=== PATIENT | male | born 1935 | race Caucasian/White ===

== ENCOUNTER 2016-12-30 13:29 | Inpatient (IN) | payer MEDICARE, BC ==
[~2016-12-30] VITALS: Ht 193 cm; Wt 108.4 kg
--- NOTE | ~2016-12-30 | OP ---
PATIENT NAME: JACEY NAVARRO MEDICAL RECORD: [id number] :36 LOCATION:[id number] ADMISSION DATE:12/30/16 SURGEON: YE VALENZUELA MD DATE OF OPERATION: 01/02/2017 PREOPERATIVE DIAGNOSES: 1. Acute cholecystitis. 2. Elevated liver function tests. 3. Hypertension. POSTOPERATIVE DIAGNOSES: 1. Acute cholecystitis. 2. Elevated liver function tests. 3. Hypertension. PROCEDURES: 1. Laparoscopic cholecystectomy with intraoperative cholangiogram. 2. Fluoroscopic interpretation. SURGEON: Ye Valenzuela MD. REPORT OF PROCEDURE: The patient's abdomen was prepped and draped in sterile fashion. A cutdown was made on the superior aspect of the umbilicus, 0 Vicryls were placed on the fascia bilaterally and the fascia was incised with 15-blade. I then bluntly entered the peritoneal cavity and placed a 12-mm Marcell port. Under direct visualization, a 5 mm trocar was placed in the epigastrium and 2 more 5-mm trocars were placed in the right subcostal region. The gallbladder was grasped and elevated. There is a lot of inflammatory fatty adhesions present and these were teased down carefully with blunt dissection. The adhesions appeared to be more chronic than acute, but there was some acute inflammation to the gallbladder fundus. As we dissected down, we were able to find the cystic artery and cystic duct. The cystic artery was clipped proximally and distally and ligated in standard fashion. The cystic duct was clipped twice proximally and a small opening was made. A Cook cholangiocath was brought through the abdominal wall and rested in the cystic duct. The cholangiogram was performed and it showed there were no filling defects in the cystic duct or the common bile duct, there was good filling of the intrahepatic ducts and there was good flow out into the duodenum. There was no sign of any stricturing or masses. There was some tortuosity to the common bile duct, but otherwise there did not appear to be any dilatation. At this point, the cholangiocath was removed. The cystic duct was clipped 3 times distally and ligated in standard fashion. The gallbladder was taken off the liver bed using electrocautery and placed in the right upper quadrant. Any bleeding from the liver bed was treated with electrocautery. We irrigated out the right upper quadrant and assured there was no sign of any bleeding or bile leakage. At this point, the ports and insufflation were then removed and then, the gallbladder was taken out through the umbilicus. The umbilical fascia was closed with interrupted 0 Vicryls times 3. The wounds were irrigated out with normal saline and infused with 10 mL of 0.25% Marcaine with epinephrine. The skin incisions were all closed with subcutaneous 5-0 Monocryl and dressed appropriately. COMPLICATIONS: None. CONDITION: Stable. OPERATIVE REPORT [id number] JACEY NAVARRO ANESTHESIA: General endotracheal and local. BLOOD LOSS: 50 mL. TRANSINT:[id number] Voice Confirmation ID: [id number] DOCUMENT ID: [id number] YE VALENZUELA MD CC: ALEXANDER MANCUSO DO [id number] DICTATION DATE: 01/02/17917 EDGING SUPERVISOR: 01/02/17 1059 ADM IN [id number] [place] [address]
[~2016-12-30 13:29] MED LIST: ANUSOL-HC 2.5%30 GM TOPICAL; ANUSOL-HC25 MG RC; BP MED PO; CELEXA20 MG PO; DILAUD1MGAMP IV; DOXYCYCLINE HY100 M2 PO; HYDROCODON-ACE1 EAC7 PO; MOBIC7.5 MG PO; ONDANSETRON4 MG/2 M3 IV; PRAVACHOL20 MG PO; PRILOSEC20 MG PO; RESTORIL15 MG PO; SALINE FLUSH10 ML IV; TOPROL XL25 MG PO; [UNRECOGNIZED DRUG - REMARK]; [UNRECOGNIZED DRUG - REMARK] PO
[2016-12-30 15:12] LABS: BASOPHILS 0.2 % (0-2); EOSINOPHILS 0.2 % (0-7); HEMOGLOBIN 15.7 g/dL (13.5-17.5); IMMATURE GRANULOCYTES 0.2 % (0-5); LYMPHOCYTES 8.7 % (15-50); MCH 30.4 pg (26.0-34.0); MCHC 33.4 g/dL (31.0-37.0); MCV 91.1 fL (80.0-100.0); MEAN PLATELET VOLUME 10.2 fL (7.4-10.4); MONOCYTES 2.3 % (2-11); NEUTROPHILS 88.4 % (40-80); RBC 5.16 10x6/uL (4.20-6.10); RDW 14.8 % (11.5-14.5); WBC 5.2 10x3/uL (4.8-10.8)
[2016-12-30 15:15] LABS: PLATELET COUNT 118 10x3/uL (130-400)
[2016-12-30 15:26] LABS: ALBUMIN 3.5 g/dL (3.4-5.0); ANION GAP 16.8 mmol/L (8-16); BILIRUBIN - TOTAL 3.3 mg/dL (0.2-1.3); CALCIUM 10.1 mg/dL (8.5-10.1); CARBON DIOXIDE 24.4 mmol/L (21.0-32.0); CREATININE - SERUM 1.6 mg/dL (0.6-1.3); POTASSIUM - SERUM 3.2 mmol/L (3.5-5.1); PROTEIN - SERUM 7.8 g/dL (6.4-8.2)
[2016-12-30 15:51] LABS: LIPASE 100 U/L (73-393)
[2016-12-30 15:58] LABS: AMYLASE - SERUM 41 U/L (25-115)
[2016-12-30 16:28] LABS: APPEARANCE CLEAR (CLEAR); BILIRUBIN 2+ (NEGATIVE); COLOR AMBER (YELLOW); GLUCOSE NEGATIVE (NEGATIVE); KETONE NEGATIVE (NEGATIVE); LEUKOCYTE ESTERASE NEGATIVE (NEGATIVE); NITRITE NEGATIVE (NEGATIVE); PROTEIN TRACE mg/dL (NEGATIVE)
[2016-12-30 16:30] LABS: RED CELLS - URINE 0-5 /hpf (0-5); WHITE CELLS - URINE 0-5 /hpf (0-5)
[2016-12-30 16:31] LABS: BACTERIA FEW /hpf (NONE SEEN)
--- NOTE | 2016-12-30 19:56 | NUR ---
REC'D TO ROOM 2223 PER STRETCHER FROM ER DEPT AN 81 Y/O W/M PER SERVICES DR. MANCUSO WITH DR. VALENZUELA ON CONSULT WITH DX. CHOLECYSTITIS. ALLERGY-IODINE. IV SALINE LOCKED TO LEFT HAND. AT BEDSIDE. PT IS NPO.ASSESSMENT PER ADMIT PACKET.
[2016-12-30 20:00] VITALS: BP 113/58
[2016-12-30 21:36] VITALS: BP 113/58; BMI 29.2
[2016-12-30] MEDS ORDERED: FISH OIL 1,0001 CA1 PO (21:44)
--- NOTE | 2016-12-30 22:30 | NUR ---
IV FLUIDS OF D5NS STARTED INFUSING AT 50CC'S/HR.
[2016-12-31] VITALS: BP 112/57
--- NOTE | 2016-12-31 | NUR ---
EYES CLOSED RESPIRATIONS WITH EASE AND UNLABORED. VOIDED IN URINAL.
--- NOTE | 2016-12-31 01:00 | NUR ---
UP WITH HELP TO BSC GAS EXPELLED.
--- NOTE | 2016-12-31 03:08 | NUR ---
REMAINS NPO AT BEDSIDE. LEMON SWABS GIVEN FOR DRY MOUTH.
--- NOTE | 2016-12-31 06:31 | NUR ---
REMAINS NPO RESTING QUIETLY DENIES NEEDS.
--- NOTE | 2016-12-31 07:05 | NUR ---
REPORT RECEIVED FROM INSURANCE AGENCY OWNER NURSE. CALL LIGHT IN REACH.
--- NOTE | 2016-12-31 07:40 | NUR ---
PT SITTING UP IN BED WITH NO VISABLE SIGNS OF PAIN OR DISCOMFORT. BED IN LOW POSITION AND CALL LIGHT WITHIN REACH. WILL CONTINUE TO MONITOR.
[2016-12-31 08:14] VITALS: BP 105/55
[2016-12-31 08:14] LABS: ANION GAP 16.5 mmol/L (8-16); CALCIUM 9.3 mg/dL (8.5-10.1); CARBON DIOXIDE 25.1 mmol/L (21.0-32.0); CREATININE - SERUM 1.7 mg/dL (0.6-1.3); POTASSIUM - SERUM 3.6 mmol/L (3.5-5.1)
[2016-12-31 08:20] LABS: BASOPHILS 0.1 % (0-2); EOSINOPHILS 0.1 % (0-7); HEMATOCRIT 42.3 % (42.0-54.0); HEMOGLOBIN 14.2 g/dL (13.5-17.5); IMMATURE GRANULOCYTES 0.4 % (0-5); LYMPHOCYTES 11.9 % (15-50); MCH 30.3 pg (26.0-34.0); MCHC 33.6 g/dL (31.0-37.0); MCV 90.2 fL (80.0-100.0); MEAN PLATELET VOLUME 10.2 fL (7.4-10.4); MONOCYTES 3.3 % (2-11); NEUTROPHILS 84.2 % (40-80); PLATELET COUNT 114 10x3/uL (130-400); RBC 4.69 10x6/uL (4.20-6.10); RDW 15.4 % (11.5-14.5)
[2016-12-31 08:33] LABS: WBC 10.1 10x3/uL (4.8-10.8)
--- NOTE | 2016-12-31 09:02 | NUR ---
ASSESSMENT COMPLETED. NPO AT THIS TIME. AT BEDSIDE. CALL LIGHT IN REACH. WILL CONTINUE WITH PLAN OF CARE.
--- NOTE | 2016-12-31 09:45 | NUR ---
EXPLAINED TO PATIENT THAT HE CANNOT HAVE ANY PAIN MEDS AT THIS TIME UNTIL HIS PIPIDA SCAN. ALSO EXPLAINED WHAT A PIPIDA SCAN IS. VERBALIZED UNDERSTANDING.
--- NOTE | 2016-12-31 11:59 | NUR ---
IV FLUIDS CHANGED TO NS WITH 20 MEQ KCL @ 100 CC/HR AND ZOSYN IVPB. CALL LIGHT IN REACH.
[2016-12-31 12:04] VITALS: BP 100/61
--- NOTE | 2016-12-31 13:34 | NUR ---
SPOKE WITH DR. MANCUSO'S EMPLOYEES ABOUT PATIENT'S CT RESULTS. SHE WAS ALSO ASKING IF SURGERY HAS BEEN HERE TO SEE PATIENT. EXPLAINED TO HER THAT DR. VALENZUELA HAS ORDERED A PIPIDA SCAN. SHE VEDRBALIZED UNDERSTANDING.
--- NOTE | 2016-12-31 14:50 | NUR ---
TO NUCLEAR MED VIA .
[2016-12-31 14:53] VITALS: Ht 193 cm; Wt 108.4 kg
--- NOTE | 2016-12-31 16:00 | NUR ---
STILL IN NUC MED AT THIS TIME.
--- NOTE | 2016-12-31 17:15 | NUR ---
BACK IN ROOM AT THIS TIME. IV FLUIDS INFUSING. FAMILY AT BEDSIDE. CALL LIGHT IN REACH.
--- NOTE | 2016-12-31 18:12 | NUR ---
CLEAR LIQUID TRAY GIVEN. NO CHANGES IN INITIAL ASSESSMENT. CALL LIGHT IN REACH. WILL CONTINUE WITH PLAN OF CARE.
[2016-12-31 19:30] VITALS: BP 120/66
--- NOTE | 2016-12-31 20:00 | NUR ---
ASSESSMENT PER FLOWSHEET. IV PATENT LEFT HAND OF NS W/20MEQ KCL INFUSING AT 100CC'S/HR SITE CLEAR. SR UP X2 CALL LIGHT WITHIN REACH USES URINAL TO VOID. O2 ON 2L/M PER NC. BEDSIDE UPDRAFT TX GIVEN PER RT TECH.
--- NOTE | 2016-12-31 22:00 | NUR ---
EYES CLOSED RESPIRATIONS WITH EASE AND UNLABORED.
[2016-12-31 23:10] VITALS: BP 136/68
--- NOTE | 2017-01-01 | NUR ---
EYES CLOSED RESP[IRATIONS WITH EASE AND UNLABORED. VOIDS WELL IN URINAL.
--- NOTE | 2017-01-01 02:30 | NUR ---
AWAKE SR UP X2 CALL LIGHT WITHIN REACH. O2 ON 2L/M PER NC. NO DISTRESS.
[2017-01-01 03:15] VITALS: BP 132/66
--- NOTE | 2017-01-01 04:14 | NUR ---
RESTING QUIETLY DENIES NEEDS.
[2017-01-01 04:55] LABS: BASOPHILS 0.3 % (0-2); EOSINOPHILS 2.1 % (0-7); HEMATOCRIT 40.4 % (42.0-54.0); HEMOGLOBIN 13.2 g/dL (13.5-17.5); IMMATURE GRANULOCYTES 0.3 % (0-5); LYMPHOCYTES 12.5 % (15-50); MCH 29.8 pg (26.0-34.0); MCHC 32.7 g/dL (31.0-37.0); MCV 91.2 fL (80.0-100.0); MEAN PLATELET VOLUME 10.4 fL (7.4-10.4); MONOCYTES 6.6 % (2-11); NEUTROPHILS 78.2 % (40-80); PLATELET COUNT 102 10x3/uL (130-400); RBC 4.43 10x6/uL (4.20-6.10); RDW 15.8 % (11.5-14.5); WBC 7.8 10x3/uL (4.8-10.8)
[2017-01-01 05:15] LABS: ALBUMIN 2.9 g/dL (3.4-5.0); ANION GAP 11.7 mmol/L (8-16); BILIRUBIN - TOTAL 1.9 mg/dL (0.2-1.3); CALCIUM 8.4 mg/dL (8.5-10.1); CARBON DIOXIDE 25.9 mmol/L (21.0-32.0); CREATININE - SERUM 1.4 mg/dL (0.6-1.3); POTASSIUM - SERUM 3.6 mmol/L (3.5-5.1); PROTEIN - SERUM 6.1 g/dL (6.4-8.2)
--- NOTE | 2017-01-01 07:45 | NUR ---
AWAKE AND ALERT.ORIENTED X3. NO C/O THIS AM. LUNGS ARE CLEAR BILATERALLY, NO COUGH NOTED. SKIN IS INTACT WITHOUT REDNESS. IV TO LEFT FOREARM IS PATENT WITHOUT REDNESS AT INSERTION SITE. DENIES NEEDS.
--- NOTE | 2017-01-01 08:45 | NUR ---
REQUESTED AND GIVEN 650 MG TYLENOL PO FOR C/O HEADACHE. WILL MONITOR.
[2017-01-01 09:24] VITALS: BP 132/71
--- NOTE | 2017-01-01 10:35 | NUR ---
Patient Name: JACEY NAVARRO Admission Status: ER Accout number: [id number] Admission Date: 12-30-2016 : 1935 Admission Diagnosis:CHOLECYSTITIS, UNSPECIFIED Attending: Jalil Garcia Current LOS: 2 Anticipated DC Date: 01-03-2017 Planned Disposition: Home Primary Insurance: MEDICARE A & B Discharge Planning Comments: CM MET WITH PATIENT AND DAUGHTER (SHAUNNA) REGARDING D/C NEEDS AND PLANS. PATIENT STATED HE LIVES WITH HIS AND WILL RETURN THERE AT DISCHARGE. FAMILY WILL DRIVE HIM HOME PER DAUGHTER. PATIENT HAS 3 STEPS W/RAILS TO ENTER HOME AND NO STAIRS INSIDE. PATIENT IS INDEPENDENT WITH HIS CARE AND HAS A WALKER, AND ELEV. TOILET SEAT AT HOME. PATIENTS PCP IS DR. GARCIA AND PHARMACY IS [facility] [address] PATIENTS DAUGHTER STATES HE MIGHT NEED HOME HEALTH BUT WANTS TO WAIT AND SEE WHAT HAPPENS AT THIS STAY. CM WILL CONTINUE TO FOLLOW PATIENT WITH D/C NEEDS AND PLANS. PCP DR. BARTOLOME [facility] ON [facility] [phone] SHAUNNA (DAUGHTER) [phone] Bureau Director: Audrey Dejan Is the patient Alert and Oriented? Yes 0 * How many steps to enter\exit or inside your home? 3 W/RAILS 0 * PCP DR. GARCIA 0 * [facility] [address] * Preadmission Environment Home with Family 0 * ADLs Independent 0 * Equipment Elevated [place] Seat Walker 0 * List name and contact numbers for known caregivers / representatives who currently or will assist patient after discharge: SHAUNNA (DAUGHTER) [phone] 0 * Community resources currently utilized None 0 * Additional services required to return to the preadmission environment? Yes 0 * Can the patient safely return to the preadmission environment? Yes 0 * Has this patient been hospitalized within the prior 30 days at any hospital? No 0 Grand Total: 0
--- NOTE | 2017-01-01 12:30 | NUR ---
LUNCH SERVED IN ROOM. VERY GLAD TO HAVE FULL LIQUID VS CL. NO C/O AT THIS TIME.
--- NOTE | 2017-01-01 16:00 | NUR ---
IV TO LEFT HAND FELL OUT WITH CATHETER INTACT.
[2017-01-01 16:20] VITALS: BP 142/65
--- NOTE | 2017-01-01 16:45 | NUR ---
22 GAUGE IV SITED TO RIGHT FOREARM X1 ATTEMPT. FLUSHES EASY WITH BRISK BLOOD RETURN PRESENT. SECURED WITH TAPE AND TEGADERM. WELL TOLERATED.
--- NOTE | 2017-01-01 17:52 | NUR ---
ATE ALL OF FULL LIQUID SUPPER. FAMILY IN ROOM. REQUESTED AND GIVEN 650 MG TYLENOL PO FOR C/O HEADACHE. WILL MONITOR. NO CHANGES NOTED.
[2017-01-01 20:00] VITALS: BP 141/78
--- NOTE | 2017-01-01 20:00 | NUR ---
ASSESSMENT PER FLOWSHEET. IV PATENT RT FOREARM OF NS W/20MEQ KCL INFUSIING AT 100CC'S/HR SITE CLEAR. SR UP X2 CALL LIGHT WITHIN REACH.
--- NOTE | 2017-01-01 21:00 | NUR ---
MEDS PER MAR.
[2017-01-02] VITALS (12 sets, daily range): BP systolic 128–159; BP diastolic 70–86
--- NOTE | 2017-01-02 | NUR ---
NPO FOR SURGERY IN AM. INFORMED PATIENT OF TIME OF SURGERY IN AM.
--- NOTE | 2017-01-02 00:19 | NUR ---
C/O HEAD ACHE TYLENOL ES 1000MG PO GIVEN FOR RELIEF OF HEADACHE PAIN.
--- NOTE | 2017-01-02 03:00 | NUR ---
EYES CLOSED RESPIRATIONS WITH EASE AND UNLABORED.
[2017-01-02 04:44] LABS: BASOPHILS 0.4 % (0-2); EOSINOPHILS 7.9 % (0-7); HEMATOCRIT 38.5 % (42.0-54.0); HEMOGLOBIN 12.8 g/dL (13.5-17.5); IMMATURE GRANULOCYTES 0.4 % (0-5); LYMPHOCYTES 21.8 % (15-50); MCH 30.4 pg (26.0-34.0); MCHC 33.2 g/dL (31.0-37.0); MCV 91.4 fL (80.0-100.0); MEAN PLATELET VOLUME 9.8 fL (7.4-10.4); MONOCYTES 6.6 % (2-11); NEUTROPHILS 62.9 % (40-80); PLATELET COUNT 102 10x3/uL (130-400); RBC 4.21 10x6/uL (4.20-6.10); WBC 5.3 10x3/uL (4.8-10.8)
[2017-01-02 04:54] LABS: PROTIME 13.1 SECONDS (11.6-15.0)
[2017-01-02 05:01] LABS: ALBUMIN 2.5 g/dL (3.4-5.0); BILIRUBIN - TOTAL 1.16 mg/dL (0.2-1.3); CALCIUM 8.4 mg/dL (8.5-10.1); CARBON DIOXIDE 24.7 mmol/L (21.0-32.0); CREATININE - SERUM 1.1 mg/dL (0.6-1.3); MAGNESIUM - SERUM 1.6 mg/dL (1.8-2.4); PHOSPHOROUS 1.9 mg/dL (2.5-4.9); POTASSIUM - SERUM 3.7 mmol/L (3.5-5.1); PROTEIN - SERUM 6.3 g/dL (6.4-8.2)
--- NOTE | 2017-01-02 10:15 | NUR ---
RECEIVED FROM PACU VIA BED. A/O X3. NO C/O PAIN OR DISCOMFORT. 5 SMALL INSERTION SITES TO ABDOMEN DRY AND INTACT. FAMILY IN ROOM. DENIES NEEDS.
--- NOTE | 2017-01-02 11:03 | NUR ---
VOIDED PER SELF USED URINAL.
--- NOTE | 2017-01-02 11:38 | NUR ---
TOOK AM MEDS WITHOUT DIFFICULTY. ORDERED FULL LIQUID FOR LUNCH PER PATIENT REQUEST.
--- NOTE | 2017-01-02 13:59 | NUR ---
ATE ALL OF FULL LIQUID LUNCH TRAY WITHOUT PAIN OR NAUSEA. UP TO BR WITH ONE PERSON MIN ASSIST. VOIDED CLEAR YELLOW URINE WITHOUT DIFFICULTY. AMBULATED 20 FEET IN HALLWAY WITH MIN ASSIST. REPOSITIONED IN BED FOR COMFORT. VSS.
--- NOTE | 2017-01-02 14:17 | NUR ---
NUTRITION F/U CHART REVIEWED. PT TOLERATING FULL LIQUID DIET WITH GOOD INTAKE. WILL CONTINUE TO MONITOR DIET ADVANCEMENT, PO INTAKE. RD FOLLOWING
--- NOTE | 2017-01-02 16:30 | NUR ---
REQUETED AND GIVEN ONE HYDROCODONE PO FOR C/O PAIN TO ABDOMEN LEVEL 3. WILL MONITOR.
--- NOTE | 2017-01-02 20:00 | NUR ---
ASSESSMENT PER FLOWSHEET. IV PATENT RT FOREARM OF NS W/20MEQ KCL AT 100CC'S/HR SITE CLEAR. LAP SITES TO ABDOMEN X4 C/D/I. VOIDS IN URINAL.DENIES NEEDS.
--- NOTE | 2017-01-02 21:35 | NUR ---
C/O INCISIONAL PAIN RATES PAIN LEVEL #6. NORCO TAB ONE PO GIVEN FOR PAIN CONTROL.
--- NOTE | 2017-01-02 23:00 | NUR ---
EYES CLOSED RESPIRATIONS WITH EASE AND UNLABORED.
[2017-01-03] VITALS: BP 131/80
--- NOTE | 2017-01-03 00:57 | NUR ---
C/O PAIN RATES PAIN #4 TOO EARLY FOR NORCO TYLENOL ES TAB 2 PO GIVEN FOR PAIN CONTROL.
--- NOTE | 2017-01-03 03:00 | NUR ---
EYES CLOSED RESPIRATIOONS WITH EASE AND UNLABORED.
[2017-01-03 04:00] VITALS: BP 136/71
--- NOTE | 2017-01-03 04:38 | NUR ---
C/O INCISIONAL PAIN NORCO TAB ONE PO GIVEN FOR PAIN CONTROL.
--- NOTE | 2017-01-03 06:30 | NUR ---
NO CHAGES IN ASSESSMENT.
--- NOTE | 2017-01-03 07:30 | NUR ---
REPORT RECEIVED, CARE OF PT ASSUMED. NO COMPLAINTS AT THIS TIME. AT BEDSIDE. BED IN LOWEST POSITION, SIDE RAILS UP X 2, CALL LIGHT WITHIN REACH.
[2017-01-03 08:58] VITALS: BP 133/77
[2017-01-03] MEDS ORDERED: HYDROCODON-ACE1 EAC7 PO (09:56)
[2017-01-03] MEDS ORDERED: LEVAQUIN500 MG PO (10:00)
--- NOTE | 2017-01-03 10:57 | NUR ---
CM REASSESSMENT NOTE: PATIENT IS DISCHARGING HOME TODAY- DRIVING. PATIENT REFUSING HOME HEALTH OR ANY OTHER NEEDS FOR DISCHARGE.
[2017-01-03 11:17] LABS: CEA 2.6 ng/mL (0.0-4.7)
--- NOTE | 2017-01-03 11:29 | NUR ---
DISCHARGE INSTRUCTIONS GIVEN TO PT AND , VERBALIZED UNDERSTANDING.
--- NOTE | 2017-01-03 12:15 | NUR ---
PT DISCHARGED FROM FLOOR VIA WHEELCHAIR, WITH . PERSONAL BELONGINGS WITH PT, D/C TO FAMILY VEHICLE.
== END 2017-01-03 12:16 | disposition home or self-care (01) | DRG 418 ==
LOC: D.ER 13:29 → D.MS 18:00
PROVIDERS: Internal Medicine Gastroenterology; Physician Assistant; Surgery; ADMIT Family Medicine
PROC: BF121ZZ Fluoroscopy of Gallbladder using Low Osmolar Contrast (ICD-10-PCS; 2017-01-02)
PROC: 0FT44ZZ Resection of Gallbladder, Percutaneous Endoscopic Approach (ICD-10-PCS; principal; 2017-01-02 07:30)
DX: K81.0 Acute cholecystitis (principal); R78.81 Bacteremia; I10 Essential (primary) hypertension

== ENCOUNTER 2019-06-20 12:31 | Inpatient (IN) | payer MEDICARE, BC ==
[~2019-06-20] VITALS: Ht 193 cm; Wt 82.7 kg
--- NOTE | 2019-06-20 12:15 | NUR ---
RECEIVED INTO ROOM 1112A VIA BED.ORIENTED.STATES HE IS TIRED AND WANTS TO GO HOME.ORIENTED X3.CL IN EASY REACH,BED IN LOW POSITION.BED ALARM ON.
[~2019-06-20 12:31] MED LIST changes: +ACETAMINOPHEN500 M1 PO; +CARAFATE1 G PO; +COLACE100 MG PO; +COREG 3.1253.125 MG PO; +FISH OIL 1,0001 CA1 PO; +GABAPENTIN100 MG PO; +LEVAQUIN500 MG PO; +LINZESS145 MCG PO; +MEGACE400 MG/10 PO; +MELATONIN5 MG PO; +MIRALAX17 GM PO; +PROTONIX40 MG PO; +REGLAN10 MG PO; +TRAMADOL HCL E100 M1 PO; +VOLTAREN100 GM TOPICAL
[2019-06-20 12:36] VITALS: BP 115/63
--- NOTE | 2019-06-20 19:02 | NUR ---
GREETED PATIENT AND INTRODUCED MYSELF HIS NURSE. PATIENT IS LAYING IN BED RESTING AT THIS TIME. RESPIRATIONS EVEN. NO S/S OF DISTRESS. DENIES ANY NEEDS AT THIS TIME. CALL LIGHT IN REACH.
[2019-06-20 20:30] VITALS: BP 96/59
--- NOTE | 2019-06-21 00:41 | NUR ---
PT. RESTING QUIETLY WITH EYES CLOSED. RESPIRATIONS EVEN. NO S/S OF DISTRESS. CALL LIGHT IN REACH.
--- NOTE | 2019-06-21 04:39 | NUR ---
PT RESTING QUIETLY WITH EYES CLOSED. RESPIRATIONS EVEN. NO S/S OF DISTRESS. CALL LIGHT IN REACH.
[2019-06-21 06:31] LABS: BASOPHILS 1.2 % (0-2); EOSINOPHILS 4.5 % (0-7); HEMATOCRIT 34.5 % (42.0-54.0); HEMOGLOBIN 12.1 g/dL (13.5-17.5); IMMATURE GRANULOCYTES 0.7 % (0-5); LYMPHOCYTES 22.9 % (15-50); MCH 33.8 pg (26.0-34.0); MCHC 35.1 g/dL (31.0-37.0); MCV 96.4 fL (80.0-100.0); MEAN PLATELET VOLUME 9.3 fL (7.4-10.4); MONOCYTES 8.4 % (2-11); NEUTROPHILS 62.3 % (40-80); PLATELET COUNT 223 10x3/uL (130-400); RBC 3.58 10x6/uL (4.20-6.10); RDW 13.9 % (11.5-14.5); WBC 5.7 10x3/uL (4.8-10.8)
[2019-06-21 06:49] LABS: CALC OSMOLALITY 276 mosm/kg (275-300); CALCIUM 9.8 mg/dL (8.5-10.1); CARBON DIOXIDE 24.4 mmol/L (21.0-32.0); CHLORIDE - SERUM 103 mmol/L (98-107); CREATININE - SERUM 0.8 mg/dL (0.6-1.3); GLUCOSE 95 mg/dL (74-106); POTASSIUM - SERUM 3.3 mmol/L (3.5-5.1); SODIUM 137 mmol/L (136-145); UREA NITROGEN 22 mg/dL (7-18); eGFR NON AFRICAN AMERICAN > 90 mL/min (90-120)
--- NOTE | 2019-06-21 07:45 | NUR ---
PT LYING IN BED WITH HOB ELEVATED AT 45 DEGREES. RESP EVEN AND UNLABORED. PT DENIES ANY PAIN OR DISCOMFORT AT THIS TIME. SHIFT ASSESSMENT COMPLETE. NO DISTRESS NOTED. WILL CPOC.
[2019-06-21 08:00] VITALS: BP 95/64
--- NOTE | 2019-06-21 19:15 | NUR ---
PT LYING IN BED. CL IN REACH. DENIES NEEDS OR PAIN AT THIS TIME. BED IN LOW SIDE RAILS X2. PEG TUBE INTACT OSMOLITE RUNNING AT 60ML/HR. A/O X4 CONFUSED AT TIMES. RESP EVEN AND UNLABORED. LUNGS CLEAR. BOWEL ACTIVE X4. WILL CONTINUE TO MONITOR.
[2019-06-21 20:00] VITALS: BP 117/56
--- NOTE | 2019-06-22 00:47 | NUR ---
I have reviewed this patient and I concur with the Shift Assessment completed by the Licensed Practical Nurse today this shift.
--- NOTE | 2019-06-22 04:00 | NUR ---
PT RESTING QUIETLY. CL IN REACH. NO DISTRESS NOTED. WCTM
[2019-06-22 07:56] LABS: BASOPHILS 1.1 % (0-2); EOSINOPHILS 3.5 % (0-7); HEMATOCRIT 33.2 % (42.0-54.0); HEMOGLOBIN 11.6 g/dL (13.5-17.5); IMMATURE GRANULOCYTES 0.9 % (0-5); LYMPHOCYTES 20.8 % (15-50); MCHC 34.9 g/dL (31.0-37.0); MEAN PLATELET VOLUME 9.8 fL (7.4-10.4); MONOCYTES 7.9 % (2-11); NEUTROPHILS 65.8 % (40-80); PLATELET COUNT 230 10x3/uL (130-400); RBC 3.52 10x6/uL (4.20-6.10); RDW 13.8 % (11.5-14.5); WBC 5.4 10x3/uL (4.8-10.8)
[2019-06-22 08:00] VITALS: BP 109/69
[2019-06-22 08:02] LABS: CALC OSMOLALITY 270 mosm/kg (275-300); CALCIUM 9.7 mg/dL (8.5-10.1); CHLORIDE - SERUM 103 mmol/L (98-107); CREATININE - SERUM 0.8 mg/dL (0.6-1.3); GLUCOSE 109 mg/dL (74-106); POTASSIUM - SERUM 3.6 mmol/L (3.5-5.1); SODIUM 134 mmol/L (136-145); UREA NITROGEN 18 mg/dL (7-18); eGFR NON AFRICAN AMERICAN > 90 mL/min (90-120)
[2019-06-22 08:11] LABS: MCV 94.3 fL (80.0-100.0)
--- NOTE | 2019-06-22 09:05 | NUR ---
PT AM MEDS ADMINISTERED. PT DENIES NEEDS. WCTM.
[2019-06-22 12:36] VITALS: Ht 193 cm; Wt 82.7 kg
--- NOTE | 2019-06-22 18:31 | NUR ---
PT RESTING IN BED, DINNER TRAY ORDERED D/T ORDER GETTING DC'D BY MISTAKE. PT NOW EATING. WCTM.
--- NOTE | 2019-06-22 19:20 | NUR ---
CHANGED PT DUE TO INCONTINENCE AND PEG TUBE LEAKING. ENTIRE LINEN CHANGED. CL IN REACH. PT DENIES NEEDS AT THIS TIME AND CONFUSED. LOWER LEGS COLD PEDAL PULSES WEAK 3+. RESP EVEN AND UNLABORED. BED IN LOW SIDE RAILS X2. BOWEL ACTIVE X4. PEG TUBE INTACT. WILL CONTINUE TO MONITOR.
[2019-06-22 22:21] VITALS: BP 94/49
--- NOTE | 2019-06-23 00:25 | NUR ---
I have reviewed this patient and I concur with the Shift Assessment completed by the Licensed Practical Nurse today this shift.
--- NOTE | 2019-06-23 04:23 | NUR ---
CHANGED PT DUE TO INCONTINENCE AND PT USED URINAL AT THIS TIME. CL IN REACH. TUBE FED INTACT. WCTM
--- NOTE | 2019-06-23 07:30 | NUR ---
POSITIONED ON BACK AND RESTING WITH EYES CLOSED. RESP EVEN AND UNLABORED. TUBE FEEDING IN PROGRESS PER PEG TUBE OSMOLITE 1.5 DMITRI AT 60 CC/HR WITH 50 CC FLUSH Q HOUR. NO REQUESTS VOICED. ASSESSMENT COMPLETED AND WILL CONTINUE POC. BED IN LOW POSITION AND CALL LIGHT IN REACH.
[2019-06-23 08:00] VITALS: BP 102/63
--- NOTE | 2019-06-23 10:00 | NUR ---
I have reviewed this patient and I concur with the Shift Assessment completed by the Licensed Practical Nurse today this shift.
--- NOTE | 2019-06-23 11:00 | NUR ---
I have reviewed this patient and I concur with the Shift Assessment completed by the Licensed Practical Nurse today this shift.
--- NOTE | 2019-06-23 19:00 | NUR ---
GREETED PATIENT AND INTRODUCED MYSELF HIS NURSE. PATIENT IS LAYING IN BED WATCHING TV AT THIS TIME. PT. IS AOX3. DENIES ANY NEEDS AT THIS TIME. RESPIRATIONS EVEN. NO S/S OF DISTRESS. BEDSIDE SHIFT REPORT COMPLETED BY OFF GOING NURSE. CALL LIGHT IN REACH.
[2019-06-23 20:42] VITALS: BP 107/59
[2019-06-24 08:00] VITALS: BP 109/64
[2019-06-24 09:17] LABS: BASOPHILS 0.1 % (0-2); EOSINOPHILS 0.7 % (0-7); HEMATOCRIT 32.6 % (42.0-54.0); HEMOGLOBIN 11.3 g/dL (13.5-17.5); IMMATURE GRANULOCYTES 0.3 % (0-5); MCH 33.3 pg (26.0-34.0); MCHC 34.7 g/dL (31.0-37.0); MCV 96.2 fL (80.0-100.0); MEAN PLATELET VOLUME 10.2 fL (7.4-10.4); MONOCYTES 5.8 % (2-11); NEUTROPHILS 86.1 % (40-80); PLATELET COUNT 223 10x3/uL (130-400); RBC 3.39 10x6/uL (4.20-6.10); RDW 14.9 % (11.5-14.5); WBC 6.9 10x3/uL (4.8-10.8)
[2019-06-24 09:24] LABS: CALC OSMOLALITY 269 mosm/kg (275-300); CALCIUM 9.9 mg/dL (8.5-10.1); CARBON DIOXIDE 21.3 mmol/L (21.0-32.0); CHLORIDE - SERUM 102 mmol/L (98-107); CREATININE - SERUM 0.9 mg/dL (0.6-1.3); GLUCOSE 136 mg/dL (74-106); SODIUM 133 mmol/L (136-145); UREA NITROGEN 19 mg/dL (7-18); eGFR NON AFRICAN AMERICAN 85 mL/min (90-120)
--- NOTE | 2019-06-24 15:48 | NUR ---
Nutrition Follow-up: Spoke with RN and discussed decreasing Na level. Recommended decrease in free water and TF for time being. Noted that pt is still on megace and has been eating ~25% of meals. RN also noted that patient with distended abdomen and has not had a BM in 5 days per chart. Diet: Regular Mech Soft + PEG-J feeds of Osmolite 1.5 @ 60mL/hr + H2O @ 50mL/hr PO intake: ~25% average x last 6 meals Last BM: none recorded since rehab admit Meds noted: micro-K, miralax, megace, reglan, linzess Labs noted: Na 133(L)- trending down from 137(06/21/19) and 134(06/22/19) Change TF rate to 45mL/hr and H2O flush to 40mL/hr. This will provide 1783mL of free water (~20mL/kg) and 1620 calories (~75% of estimated needs). Hopefully patient's appetite will continue to improve. Will continue to monitor sodium and PO intake. Hopefully patient will have BM soon. RD following.
--- NOTE | 2019-06-24 19:03 | NUR ---
GREETED PATIENT AND INTRODUCED MYSELF HIS NURSE. PATIENT IS LAYING IN BED JUST FINISHING HIS SUPPER. EXPLAINED TO PATIENT THAT HIS TUBE FEEDINGS HAD BEEN TURNED DOWN TO 45 ML PER HOUR TO HELP INCREASE HIS APPETITIE. PT. STATES " I JUST DONT LIKE TO EAT." EXPLAINED TO PT. THAT IT WAS IMPORTANT FOR HIS HEALTH TO TRY AND EAT. PT. STATED " I WILL TRY." RESPIRATIONS EVEN. NO S/S OF DISTRESS. CALL LIGHT IN REACH. BEDSIDE SHIFT REPORT COMPLETE FROM OFF GOING NURSE.
--- NOTE | 2019-06-24 20:08 | NUR ---
PT. CLEANED OF INCONTINENT BOWEL AND URINE. REPOSITIONED FOR COMFORT. CALL LIGHT IN REACH.
[2019-06-24 22:11] VITALS: BP 95/58
--- NOTE | 2019-06-25 01:10 | NUR ---
PT. NEEDS 1.5 OSMOLITE FOR FEEDING. DIETARY DELIVERED TO UNIT 1.0 OSMOLITE. WENT TO MED FLOOR AND ICU LOOKING FOR 1.5. UNSUCCESSFUL. CREMATOR CONTACTED OF SITUATION. CREMATOR STATED THAT SHE WOULD GO TO KITCHEN AND LOOK FOR 1.5 OSMOLITE.
--- NOTE | 2019-06-25 02:39 | NUR ---
PT. RESTING QUIETLY WITH EYES CLOSED. RESPIRATIONS EVEN. NO S/S OF DISTRESS. CALL LIGHT IN REACH.
[2019-06-25 08:43] VITALS: BP 123/72
--- NOTE | 2019-06-25 13:09 | NUR ---
PATIENT IS ALERT/ORIENT. SITTING UP IN BED TO EAT BREAKFAST. MECHANICAL SOFT DIET. PATIENT IS ALSO GETTING OSMOLIT 1.5 THROUGH PEG TUBE. VOICES NO NEEDS AT THIS TIME. CALL LIGHT WITHIN REACH. WILL CONTINUE WITH PLAN OF CARE.
--- NOTE | 2019-06-25 13:16 | NUR ---
PATIENT IN REHAB ROOM. WORKING WITH PHYSICAL THERAPIST. DENIES ANY PAIN/DISC AT THIS TIME.
--- NOTE | 2019-06-25 15:29 | NUR ---
Nutrition Follow-up: Spoke with nursing staff about patient TF. 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 Patient has been consuming ~25% of meals while in rehab. Will change to Cyclic TF of Osmolite 1.5 @ 100mL/hr + H2O @ 70mL/hr x 12hrs on and 12hrs off. To allow time off the pump for therapy during the day and to hopefully help improve appetite. This new regimen will provide: 1800 calories, 75gms PRO, and 1,754mL free water. This meets ~84% of estimated calorie needs, ~94% of estimated protein needs, and ~82% of estimated fluid needs. Will continue to monitor TF tolerance (as reported by nursing), labs, PO intake, BMs, and WT trend. RD following.
--- NOTE | 2019-06-25 19:27 | NUR ---
PT LYING IN BED. DENIES NEEDS OR PAIN AT THIS TIME. BED IN LOW SIDE RAILS X2. PEG TUBE INTACT. CL IN REACH. RESP EVEN AND UNLABORED. A/O X4 WITH SOME CONFUSION WITH TIME. LUNGS CLEAR. BOWEL ACTIVE X4. WILL CONTINUE TO MONITOR.
[2019-06-25 22:10] VITALS: BP 125/59
--- NOTE | 2019-06-26 02:53 | NUR ---
I have reviewed this patient and I concur with the Shift Assessment completed by the Licensed Practical Nurse today this shift.
[2019-06-26 07:14] LABS: BASOPHILS 0.6 % (0-2); EOSINOPHILS 2.7 % (0-7); HEMATOCRIT 32.7 % (42.0-54.0); HEMOGLOBIN 11.2 g/dL (13.5-17.5); IMMATURE GRANULOCYTES 0.6 % (0-5); LYMPHOCYTES 23.3 % (15-50); MCH 33.3 pg (26.0-34.0); MCHC 34.3 g/dL (31.0-37.0); MCV 97.3 fL (80.0-100.0); MEAN PLATELET VOLUME 9.7 fL (7.4-10.4); MONOCYTES 9.5 % (2-11); NEUTROPHILS 63.3 % (40-80); RBC 3.36 10x6/uL (4.20-6.10); RDW 15.1 % (11.5-14.5)
[2019-06-26 07:19] LABS: PLATELET COUNT 271 10x3/uL (130-400); WBC 4.7 10x3/uL (4.8-10.8)
[2019-06-26 07:25] LABS: CALC OSMOLALITY 272 mosm/kg (275-300); CARBON DIOXIDE 22.7 mmol/L (21.0-32.0); CHLORIDE - SERUM 103 mmol/L (98-107); GLUCOSE 91 mg/dL (74-106); SODIUM 135 mmol/L (136-145); UREA NITROGEN 21 mg/dL (7-18); eGFR NON AFRICAN AMERICAN 76 mL/min (90-120)
--- NOTE | 2019-06-26 08:00 | NUR ---
PATIENT ALERT, HARD OF HEARING AND FORGETFULL. BED ALARM ON. CALL LIGHT WITHIN REACH. VOICES NO NEEDS AT THIS TIME. WILL CONTINE WITH PLAN OF CARE
[2019-06-26 08:25] VITALS: BP 121/57
--- NOTE | 2019-06-26 13:23 | NUR ---
PATIENT ATE 50% OF LUNCH. DRANK 50% OF ENSURE.
--- NOTE | 2019-06-26 14:54 | NUR ---
PATIENT ADMITTED TO REHAB FROM ACUTE FLOOR. HIS PCP IS DR. MANCUSO. DR. MANCUSO NURSE IS PATIENT DAUGHTER. WILL CONTINUE TO FOLLOW WITH PATIENT. PATIENT WAS A CLIENT OF [facility].
--- NOTE | 2019-06-26 18:40 | NUR ---
BEDSIDE REPORT COMPLETE. PT SITTING UP IN BED WATCHING TV. DENIES ANY NEEDS OR PAIN. RR EVEN AND UNLABORED. CONTINUES ON 2L VIA NC. CL IN REACH. FALL PRECAUTIONS IN PLACE. WILL CONTINUE TO MONITOR
--- NOTE | 2019-06-26 18:40 | NUR ---
BEDSIDE REPORT COMPLETE. PT LYING IN BED ON LEFT SIDE EYES CLOSED RESTING. RR EVEN AND UNLABORED. DENIES ANY NEEDS OR PAIN. CL IN REACH. FALL PRECAUTIONS IN PLACE. WILL CONTINUE TO MONITOR
--- NOTE | 2019-06-26 18:58 | NUR ---
RADIOLOGY RETURNED CALL AND ADVISED DR. OVIEDO NEEDS TO CONTACT DR. BOWMAN [phone] HE NEEDS TO SPEAK WITH HIM IN REGARDS TO PT GJ TUBE BEING CLOGGED ON THE JUJENAL SIDE.
[2019-06-26 21:50] VITALS: BP 100/51
--- NOTE | 2019-06-26 23:53 | NUR ---
PT LYING IN BED ON LEFT SIDE EYES CLOSED RESTING. NO SIGNS OF ACUTE DISTRESS NOTED. FEEDING TUBE RUNNING 100ML/HR. CL IN REACH
--- NOTE | 2019-06-27 03:40 | NUR ---
PT LYING IN BED ON RIGHT SIDE EYES CLOSED RESTING. RR EVEN AND UNLABORED. CL IN REACH
--- NOTE | 2019-06-27 05:20 | NUR ---
PT REFUSED BATH PT STATES "ITS TOO COLD"
[2019-06-27 07:00] VITALS: BP 102/60
--- NOTE | 2019-06-27 08:00 | NUR ---
PT RESTING IN BED WITH EYES OPEN CALL LIGHT IN REACH NO PROBLEMS WILL MONITER
--- NOTE | 2019-06-27 15:09 | NUR ---
I have reviewed this patient and I concur with the Shift Assessment completed by the Licensed Practical Nurse today this shift.
--- NOTE | 2019-06-27 18:33 | NUR ---
PT RESTING IN BED WITH EYES OPEN CALL LIGHT IN REACH WILL MONITER
--- NOTE | 2019-06-27 19:20 | NUR ---
GREETED PATIENT AND INTRODUCED MYSELF HIS NURSE. PATIENT IS LAYING IN BED RESTING AT THIS TIME. RESPIRATIONS EVEN. NO S/S OF DISTRESS. DENIES ANY NEEDS AT THIS TIME. PT. IS ORIENTATED TO SELF ONLY AT THIS TIME. CALL LIGHT IN REACH.
[2019-06-27 19:45] VITALS: BP 105/53
--- NOTE | 2019-06-28 00:53 | NUR ---
PT AWAKE AND CONFUSED AT THIS TIME. ORIENTATED TO SELF ONLY. ATTEMPTED TO REORIENTATE PATIENT TO STAFF AND SURROUNDINGS. REPOSITIONED FOR COMFORT. CALL LIGHT IN REACH.
--- NOTE | 2019-06-28 03:00 | NUR ---
PT. AWAKE LAYING IN BED. RESPIRATIONS EVEN. NO S/S OF DISTRESS. DENIES ANY NEEDS AT THIS TIME. CALL LIGHT IN REACH.
--- NOTE | 2019-06-28 08:00 | NUR ---
SHIFT ASSMT COMPLETED.BREAKFAST GIVEN.CL IN REACH.
[2019-06-28 10:08] VITALS: BP 105/56
--- NOTE | 2019-06-28 16:00 | NUR ---
RESTING QUIETLY.CL IN REACH.
--- NOTE | 2019-06-28 19:05 | NUR ---
GREETED PATIENT AND INTRODUCED MYSELF HIS NURSE. PATIENT IS LAYING IN BED RESTING QUIETLY AT THIS TIME. TUBE FEEDING SET UP AND RUNNING AT 100 ML/HR WITH A 70 ML/FLUSH. RESPIRATIONS EVEN. NO S/S OF DISTRESS. CALL LIGHT IN REACH.
[2019-06-28 19:30] VITALS: BP 103/54
--- NOTE | 2019-06-28 23:20 | NUR ---
PT. CLEANED OF INCONTINENT BOWEL AND URINE. COMPLETED BED BATH AND LINEN CHANGE. PT REPOSITIONED FOR COMFORT. CALL LIGHT IN REACH.
--- NOTE | 2019-06-29 00:59 | NUR ---
PT. CLEANED OF INCONTINENT BM. COMPLETE BED CHANGE AND REPOSITIONED FOR COMFORT. CALL LIGHT IN REACH.
[2019-06-29 07:07] LABS: BASOPHILS 0.5 % (0-2); EOSINOPHILS 3.1 % (0-7); HEMATOCRIT 31.2 % (42.0-54.0); HEMOGLOBIN 10.6 g/dL (13.5-17.5); IMMATURE GRANULOCYTES 1.5 % (0-5); LYMPHOCYTES 18.7 % (15-50); MCH 32.9 pg (26.0-34.0); MCV 96.9 fL (80.0-100.0); MEAN PLATELET VOLUME 9.3 fL (7.4-10.4); MONOCYTES 8.8 % (2-11); NEUTROPHILS 67.4 % (40-80); PLATELET COUNT 279 10x3/uL (130-400); RBC 3.22 10x6/uL (4.20-6.10); RDW 15.5 % (11.5-14.5); WBC 5.8 10x3/uL (4.8-10.8)
[2019-06-29 07:27] LABS: CALC OSMOLALITY 265 mosm/kg (275-300); CALCIUM 9.2 mg/dL (8.5-10.1); CARBON DIOXIDE 22.6 mmol/L (21.0-32.0); CHLORIDE - SERUM 103 mmol/L (98-107); CREATININE - SERUM 0.9 mg/dL (0.6-1.3); GLUCOSE 102 mg/dL (74-106); POTASSIUM - SERUM 3.9 mmol/L (3.5-5.1); SODIUM 131 mmol/L (136-145); UREA NITROGEN 22 mg/dL (7-18); eGFR NON AFRICAN AMERICAN 85 mL/min (90-120)
--- NOTE | 2019-06-29 08:00 | NUR ---
PT RESTING IN BED WITH EYES OPEN CALL LIGHT IN REACH WILL MONITER
[2019-06-29 08:14] VITALS: BP 103/55
--- NOTE | 2019-06-29 12:00 | RHP ---
PATIENT: JACEY NAVARRO MEDICAL RECORD: [id number] ACCOUNT: [id number] LOCATION:[facility]1112 : 36 ADMISSION DATE: 06/20/19 REHABILITATION HISTORY AND PHYSICAL EXAMINATION POST ADMISSION PHYSICIAN EXAMINATION DATE OF ADMISSION: 06/20/2019. ADMITTING DIAGNOSIS: Acute metabolic encephalopathy. HISTORY OF PRESENT ILLNESS: The patient is an 84-year-old gentleman who got a history of 2 weeks of nausea and vomiting. He had been on Reglan and Zofran without relief. He had an unexpected weight loss about 50 pounds since last summer, fatigue, weakness. He was seen by his night worker. He had an EGD with dilatation of his esophageal sphincter. He denied any abdominal pain, distention, fullness or any other complaints. He has continued to have nausea and vomiting throughout his stay. He has been seen by oncology, gastroenterology and general surgery. He had a JG-tube placed on 04/16/2019 and was found to have severe gastroparesis. He has also been followed by dietitian this time, has made feeding tube recommendations and had been started on 06/18/2019. He is tolerating these well. Currently on telemetry, IV Protonix, nausea and vomiting medicine, IV pain meds as needed, IV fluids. He began his feeding with his JG-tube. He is on electrolyte protocol, they are monitoring him for pain control. He has got decreased activity tolerance, decreased strength, proximal muscle weakness, balance deficits, decreased range of motion, decreased strength, gait disturbance, impaired mobility, dyspnea on exertion, high fall risk, and self-care deficits. These are all barriers to his discharged home at this time. He has recently received mcfp services at [facility], but he had 2 falls. He was set up for observation with safety with ADLs and mobility prior to this. He is currently set for max assist with ADLs, mod to max assist for his mobility. He and his family would like for him to benefit from acute inpatient rehab before returning home. COMORBIDITIES: Include oropharyngeal dysphagia, gastroparesis, Enterococcus faecalis, thrombocytopenia, low folic acid level, low magnesium, hypertension, history of TURP, acute metabolic encephalopathy, severe malnutrition, constipation, nausea, vomiting, facial droop, elevated liver enzymes, biliary obstruction, jaundice, and iron deficient anemia. PAST MEDICAL HISTORY: Significant for hypertension and transurethral resection of the prostate. He has had problems with BPH. PAST SURGICAL HISTORY: Includes transurethral resection of the prostate and JG-tube placement. ALLERGIES: IODINE. CURRENT MEDICATIONS: Include MiraLax 17 grams daily, Megace 400 mg daily, citalopram 10 mg daily, Linzess 145 mcg daily, melatonin 6 mg q.h.s., Neurontin 200 mg q.h.s., Colace 100 mg b.i.d., Carafate 1 g q.a.c. and q.h.s., Reglan 10 mg q.a.c. and q.h.s., Protonix 40 mg b.i.d., and Tylenol p.r.n. HABITS: No alcohol or tobacco use. HISTORY AND PHYSICAL [id number] JACEY NAVARRO FAMILY HISTORY: Noncontributory. SOCIAL HISTORY: The patient hopes to return back home and get back to his prior level of functioning. REVIEW OF SYSTEMS: GENERAL: Does complain of weakness and fatigue. HEENT: Denies cold, cough, or congestion. CARDIOVASCULAR: Denies any chest pain. PHYSICAL EXAMINATION: VITAL SIGNS: Stable, afebrile. GENERAL: A well-developed gentleman in no acute distress, alert upon exam. HEENT: Normocephalic and atraumatic. Mucosa moist. NECK: Supple. No lymphadenopathy. LUNGS: Clear in upper cano. HEART: Regular rate and rhythm. No murmurs, rubs, or gallops. ABDOMEN: Soft, benign, and nondistended. His JG-tube looks good. EXTREMITIES: No clubbing, cyanosis or edema. NEUROLOGIC: He does have 2-3/5 strength in his proximal muscles of his thighs. LABORATORY DATA: His white count 5.7, H&H of 12 and 34 and platelet count was noted be 223. His sodium is 137, potassium 3.3, BUN and creatinine 22 and 0.8, blood sugar is noted to be 95. ASSESSMENT: This is an 84-year-old gentleman admitted to the rehab with a working diagnosis of acute metabolic encephalopathy secondary to gastroparesis. The patient has potential to make improvement. We instituted the following multidisciplinary therapies including, but not limited to physical, occupational, respiratory, speech, nutritional services, prosthetics and orthotics. Given his complex medical condition and risk for more complications, rehabilitation services cannot be provided at a lower level of care such as mcfp facility. PLAN: 1. Admit to [facility] rehabilitation for acute inpatient therapy to include the following disciplines: A. Physical therapy to improve gait, all transfer skills and bed mobility to a modified independent level. B. Occupational therapy to improve activities of daily living to a modified independent level. C. Case management to assist with discharge planning and placement options. D. Nutrition to assist with nutritional needs. E. Rehabilitation nursing to assist in monitoring the patient's underlying medical conditions and to assist with any type of bowel or bladder management. 2. The patient's current medication and medical care will be continued. 3. The patient will be placed on standard fall precautions. 4. The patient's estimated length of stay is approximately 7-10 days. 5. We will discuss the patient during care team staff meeting this week. I am going to replace his potassium, follow his blood workup in the morning and treat appropriately. TRANSINT:[id number] Voice Confirmation ID: [id number] DOCUMENT ID: [id number] 06/25/2019 Edited for mat ZAYAS. HISTORY AND PHYSICAL [id number] JACEY NAVARRO notes whether there has been none or any medical/functional change since admission: - No change since preadmission screen. MARQUEZ attests patient continues to be appropriate for IRF: - Continues to be appropriate. GENEVIEVE OVIEDO MD at 1200 CC: [id number] DICTATION DATE: 06/21/19 1636 TOXICOLOGIST: 06/22/19 0313 ADM IN [facility] [address] [place] [address]
--- NOTE | 2019-06-29 13:25 | NUR ---
Nutrition Follow-up: Chart reviewed. notes pt with loose BM. Pt previously with constipation. Spoke with patient's RN who has had him over the weekend. She states that patient is eating ~75% of meals and is drinking Ensure. She states that he is no longer having nausea. Diet: Regular Mech Soft PO intake: ~42% average x last 11 meals as recorded into flowsheets. Patient seemed confused but states that he will eat well if TF is turned off. States that he will drink Ensure. Current TF order: Osmolite 1.5 @ 100mL/hr + H2O @ 70mL/hr x 12hrs overnight. Last BM: 06/29/19 x 2. WT: 195# (06/22/19) Meds noted: miralax, megace, reglan. Labs noted: Na 131(L)- appears to be trending down. Need new weight. Will discontinue TF. Recommend continue current diet and add Ensure with meals. Encourage PO intake. RD will continue to monitor PO intake and wt trend. RD Following.
--- NOTE | 2019-06-29 17:45 | NUR ---
PT RESTING IN BED EATING SUPPER DAUGHTER AT BEDSIDE WILL MONITER
--- NOTE | 2019-06-29 19:25 | NUR ---
PT SITTING UP IN BED DAUGHTER IN ROOM. CL IN REACH. EDUCATED PT WAS NOT ON TUBE FEEDS ANYMORE DAUGHTER WAS CONCERNED AND THIS NURSE READ ROAD CONSULTANT NOTES FOR DAUGHTER TO BETTER UNDERSTAND THEY ARE JUST MONITORING HOW WELL HE DOES OFF THE TUBE FEED AND IF HE HAS GAINED ANY WEIGHT. DENIES ANY FURTHER QUESTIONS. PT CAN BE CONFUSED AT TIMES. LUNGS CLEAR. BOWEL ACTIVE X4. RESP EVEN AND UNLABORED. WILL CONTINUE TO MONITOR.
[2019-06-29 20:52] VITALS: BP 111/59
--- NOTE | 2019-06-30 00:20 | NUR ---
I have reviewed this patient and I concur with the Shift Assessment completed by the Licensed Practical Nurse today this shift.
[2019-06-30 07:52] VITALS: BP 124/72
--- NOTE | 2019-06-30 09:27 | NUR ---
PATIENT IS ALERT WITH SOME CONFUSION NOTED. BED ALARM ON. CALL LIGHT WITHIN REACH. VOICES NO NEEDS AT THIS TIME. WILL CONTINUE WITH PLAN OF CARE.
--- NOTE | 2019-06-30 10:10 | NUR ---
PATIENT IN REHAB ROOM. WORKING WITH PHYSICAL THERAPIST. DENIES ANY PAIN/DISC AT THIS TIME. PATIENT IS A TOTAL ASST OF TWO FOR TRANSFERS.
--- NOTE | 2019-06-30 17:22 | NUR ---
J TUBE FLUSHED WITH 100CC H2O WITHOUT DIFFICULTY
--- NOTE | 2019-06-30 19:25 | NUR ---
PT LYING IN BED WATCHING TV. CL IN REACH. DENIES NEEDS OR PAIN AT THIS TIME. BED IN LOW SIDE RAILS X2. RESP EVEN AND UNLABORED. PEG TUBE INTACT. ALERT BUT CONFUSED WITH TIME AND SITUATION. LUNGS CLEAR. BOWEL ACTIVE X4. WILL CONTINUE TO MONITOR.
[2019-06-30 21:04] VITALS: BP 101/53
--- NOTE | 2019-07-01 04:02 | NUR ---
I have reviewed this patient and I concur with the Shift Assessment completed by the Licensed Practical Nurse today this shift.
--- NOTE | 2019-07-01 06:19 | NUR ---
CALLED PHARMACY TO BRING REGLAN. NO REGLAN IN [facility].
[2019-07-01 06:26] LABS: BASOPHILS 0.5 % (0-2); EOSINOPHILS 3.6 % (0-7); HEMATOCRIT 33.2 % (42.0-54.0); IMMATURE GRANULOCYTES 0.6 % (0-5); LYMPHOCYTES 19.1 % (15-50); MCH 33.1 pg (26.0-34.0); MCHC 33.1 g/dL (31.0-37.0); MEAN PLATELET VOLUME 9.5 fL (7.4-10.4); MONOCYTES 8.9 % (2-11); NEUTROPHILS 67.3 % (40-80); PLATELET COUNT 298 10x3/uL (130-400); RBC 3.32 10x6/uL (4.20-6.10); RDW 15.8 % (11.5-14.5); WBC 6.4 10x3/uL (4.8-10.8)
[2019-07-01 06:47] LABS: CALC OSMOLALITY 274 mosm/kg (275-300); CALCIUM 9.4 mg/dL (8.5-10.1); CHLORIDE - SERUM 104 mmol/L (98-107); GLUCOSE 89 mg/dL (74-106); SODIUM 136 mmol/L (136-145); UREA NITROGEN 23 mg/dL (7-18); eGFR NON AFRICAN AMERICAN 76 mL/min (90-120)
[2019-07-01 07:57] VITALS: BP 137/76
--- NOTE | 2019-07-01 09:28 | NUR ---
PATIENT IS ALERT WITH CONFUSION NOTED. BED ALARM ON. CALL LIGHT WITHIN REACH. VOICES NO NEEDS AT THIS TIME. WILL CONTINUE WITH PLAN OF CARE
--- NOTE | 2019-07-01 10:10 | NUR ---
OCCUPATIONAL THERAPIST AND PHYSICAL THERAPIST GETTING PATIENT OUT OF BED. TOTAL ASST OF TWO FOR TRANSFERS
--- NOTE | 2019-07-01 12:00 | NUR ---
J TUBE FLUSHED WITH 100CC OF H2O WITHOUT DIFFICULTIY,
--- NOTE | 2019-07-01 13:53 | NUR ---
Nutrition Follow-up: Discussed in CM meeting and with patient's RN. RN states that patient is eating 50-100% of most meals and is drinking 50-75% of Ensure. Continue with J-tube, no TFings at this time. H2O flushes of 30mL every 4hrs ordered. Diet: Regular Mech Soft + strawberry/chocolate Ensure TID PO intake: ~63% average x last 8 meals Last BM: 06/29/19 x 2. WT: 188# (06/30/19); Admit WT: 195# (06/20/19) Meds noted: miralax, megace, reglan. Labs reviewed. Noted -7lb weight difference, however 195# was a "stated" weight. Last Bedscale weight on 06/09/19 was 190.5#. Will continue to monitor weight trend. Patient appears to be with adequate PO intake at this time. Will continue to monitor. RD following.
--- NOTE | 2019-07-01 19:30 | NUR ---
PT LYING IN BED. DENIES NEEDS OR PAIN AT THIS TIME. BED IN LOW SIDE RAILS X2. CL IN REACH. RESP EVEN AND UNLABORED. CONFUSED WITH TIME AND SITUATION. LUNGS CLEAR. BOWEL ACTIVE X4. WILL CONTINUE TO MONITOR. PEG TUBE INTACT.
[2019-07-01 22:06] VITALS: BP 117/67
--- NOTE | 2019-07-02 01:00 | NUR ---
I have reviewed this patient and I concur with the Shift Assessment completed by the Licensed Practical Nurse today this shift.
[2019-07-02 08:59] VITALS: BP 124/65
--- NOTE | 2019-07-02 12:00 | NUR ---
I have reviewed this patient and I concur with the Shift Assessment completed by the Licensed Practical Nurse today this shift.
--- NOTE | 2019-07-02 16:33 | NUR ---
CARE TEAM MEETING: PATIENT IS PROGRESSING VERY SLOWLY IN THERAPY. RECOMMENDATIONS ARE FOR PATIENT TO DSICHARGE TO SNF. SPOKE WITH PATIENT DAUGHTER AND SHE WOULD LIKE FOR HIM TO RETURN TO [facility]. WILL CONTINUE TO FOLLOW WITH PATIENT AND MAKE THAT REFERRAL.
--- NOTE | 2019-07-02 16:43 | NUR ---
PT WEIGHT TODAY WAS 188 LBS
[2019-07-02 19:00] VITALS: BP 104/50
--- NOTE | 2019-07-02 19:15 | NUR ---
GREETED PATIENT AND INTRODUCED MYSELF HIS NURSE. PATIENT IS LAYING IN BED RESTING AT THIS TIME. PT. ALERT TO SELF ONLY. RESPIRATIONS EVEN. NO S/S OF DISTRESS. DENIES ANY NEEDS AT THIS TIME. BEDSIDE REPORT COMPLETED FROM OFF GOING NURSE. CALL LIGHT IN REACH.
--- NOTE | 2019-07-03 01:41 | NUR ---
PT. AWAKE LAYING IN BED RESTING. RESPIRATIONS EVEN. NO S/S OF DISTRESS. CALL LIGHT IN REACH.
--- NOTE | 2019-07-03 04:15 | NUR ---
PT AWAKE AND CLEANED OF INCONTINENT BM. REPOSITIONED FOR COMFORT. CALL LIGHT IN REACH.
[2019-07-03 07:26] LABS: BASOPHILS 0.5 % (0-2); HEMATOCRIT 35.8 % (42.0-54.0); HEMOGLOBIN 11.8 g/dL (13.5-17.5); IMMATURE GRANULOCYTES 0.3 % (0-5); LYMPHOCYTES 17.8 % (15-50); MCH 33.1 pg (26.0-34.0); MCV 100.6 fL (80.0-100.0); MEAN PLATELET VOLUME 9.2 fL (7.4-10.4); MONOCYTES 5.7 % (2-11); NEUTROPHILS 73.7 % (40-80); PLATELET COUNT 304 10x3/uL (130-400); RBC 3.56 10x6/uL (4.20-6.10); WBC 7.4 10x3/uL (4.8-10.8)
[2019-07-03 07:34] LABS: ANION GAP 14.2 mmol/L (8-16); CALCIUM 9.9 mg/dL (8.5-10.1); CARBON DIOXIDE 23.8 mmol/L (21.0-32.0); CREATININE - SERUM 1.1 mg/dL (0.6-1.3)
[2019-07-03 11:25] VITALS: BP 101/64
--- NOTE | 2019-07-03 20:00 | NUR ---
PATIENT RECEIVED SITTING UP IN BED. ASSESSMENT & VITAL SIGNS DONE. BED LOW. ALARM ON. CALL LIGHT WITHIN REACH. WILL CONTINUE TO MONITOR.
[2019-07-04 00:36] VITALS: BP 106/59
--- NOTE | 2019-07-04 02:47 | NUR ---
PATIENT AWAKE. PATIENT HAS INCONTINENT BM. LINENS & BRIEF TAKEN OFF. PATIENT CLEANED. NEW LINENS ON BED PATIENT. BED LOW. ALARM ON. CALL LIGHT WITHIN REACH. WILL CONTINUE TO MONITOR.
--- NOTE | 2019-07-04 06:06 | NUR ---
I have reviewed this patient and I concur with the Shift Assessment completed by the Licensed Practical Nurse today this shift.
--- NOTE | 2019-07-04 07:55 | NUR ---
PT RESTING IN BED WITH EYES OPEN CALL LIGHT IN REACH NO PROBLEMS WILL MONITER
--- NOTE | 2019-07-04 16:28 | NUR ---
PT INCONTINENT OF LARGE FORMED BOWEL PT CLEANED AND DRYED AND LINENS CHANGED SON AT BED SIDE CALL LIGHT IN REACH WILL MONITER
--- NOTE | 2019-07-04 19:18 | NUR ---
PT LYING IN BED. CL IN REACH. DENIES NEEDS OR PAIN AT THIS TIME. BED IN LOW SIDE RAILS X2. LUNGS CLEAR. BOWEL ACTIVE X4. RESP EVEN AND UNLABORED. PEG TUBE INTACT. WILL CONTINUE TO MONITOR.
[2019-07-04 20:00] VITALS: BP 117/59
--- NOTE | 2019-07-05 01:32 | NUR ---
I have reviewed this patient and I concur with the Shift Assessment completed by the Licensed Practical Nurse today this shift.
--- NOTE | 2019-07-05 08:00 | NUR ---
PT RESTIN IN BED EYES OPEN CALL LIGHT IN REACH NO PROBLEMS WILL MONITER
--- NOTE | 2019-07-05 11:57 | NUR ---
PT RESTING IN BED WITH EYES OPEN CALL LIGHT IN REACH NO PROBLEMS WILL MONITER
--- NOTE | 2019-07-05 14:40 | NUR ---
PT INCONTINENT OF BOWEL PT CLEANED AND DRYED AND REPOSISTED IN BED CALL LIGHT IN REACH WILL MONITER
--- NOTE | 2019-07-05 17:44 | NUR ---
PT RESTING IN BED WITH EYES OPEN WATCHING TV WILL MONITER
--- NOTE | 2019-07-05 19:10 | NUR ---
PT LYING IN BED WATCHING TV. CL IN REACH. DENIES NEEDS OR PAIN AT THIS TIME. BED IN LOW SIDE RAILS X2. LUNGS CLEAR. BOWEL ACTIVE X4. A/O X2. CONFUSED WITH TIME AND SITUATION. WILL CONTINUE TO MONITOR. BED ALARM ON.
[2019-07-05 20:00] VITALS: BP 123/51
--- NOTE | 2019-07-05 22:30 | NUR ---
CHANGED PT DUE TO INCONT OF STOOL AND URINE. WCTM DENIES NEEDS.
--- NOTE | 2019-07-06 03:23 | NUR ---
I have reviewed this patient and I concur with the Shift Assessment completed by the Licensed Practical Nurse today this shift.
[2019-07-06 06:40] LABS: BASOPHILS 0.7 % (0-2); EOSINOPHILS 1.8 % (0-7); HEMATOCRIT 35.6 % (42.0-54.0); HEMOGLOBIN 11.9 g/dL (13.5-17.5); IMMATURE GRANULOCYTES 0.4 % (0-5); LYMPHOCYTES 16.5 % (15-50); MCH 33.6 pg (26.0-34.0); MCHC 33.4 g/dL (31.0-37.0); MCV 100.6 fL (80.0-100.0); MEAN PLATELET VOLUME 9.3 fL (7.4-10.4); MONOCYTES 6.1 % (2-11); NEUTROPHILS 74.5 % (40-80); PLATELET COUNT 271 10x3/uL (130-400); RBC 3.54 10x6/uL (4.20-6.10); RDW 15.5 % (11.5-14.5); WBC 6.8 10x3/uL (4.8-10.8)
[2019-07-06 06:45] LABS: CALC OSMOLALITY 275 mosm/kg (275-300); CALCIUM 9.8 mg/dL (8.5-10.1); CHLORIDE - SERUM 103 mmol/L (98-107); CREATININE - SERUM 0.8 mg/dL (0.6-1.3); GLUCOSE 99 mg/dL (74-106); SODIUM 135 mmol/L (136-145); UREA NITROGEN 30 mg/dL (7-18); eGFR NON AFRICAN AMERICAN > 90 mL/min (90-120)
--- NOTE | 2019-07-06 07:31 | NUR ---
ALERT AND ORIENTED X2. WANTS TO GO HOME. NO C/O PAIN. CL IN REACH. RESP EVEN AND UNLABORED.
[2019-07-06 09:48] VITALS: BP 116/74
--- NOTE | 2019-07-06 14:14 | NUR ---
REFERRAL HAS BEEN FAXED TO [facility] FOR POSSIBLE ADMISSION .WILL CONTINUE TO FOLLOW WITH PATIENT.
--- NOTE | 2019-07-06 14:25 | NUR ---
Nutrition Follow-up: Diet: Regular [facility] soft + Ensure with meals PO intake: 75-100%, reports a good appetite Last BM: 07/06/19 x 2. WT: 189# (07/03/19); Admit WT: 195# (06/20/19) Meds noted: miralax, megace, reglan. Labs reviewed. Wt difference of -6# noted, but question accuracy of admit WT; regardless recent WT trend has been stable/up. Recommend continue current diet. RD following.
--- NOTE | 2019-07-06 14:55 | NUR ---
RESTING WO DISTRESS. RESP EVEN AND UNLABORED. CL IN REACH.
--- NOTE | 2019-07-06 17:10 | NUR ---
NO CHANGE IN ASSESSMENT. NO C/O PAIN. CL IN REACH. REPOSITIONED UP IN BED.
--- NOTE | 2019-07-06 19:14 | NUR ---
PATIENT LAYING IN BED. ASSESSMENT & VITAL SIGNS DONE. BED LOW. ALARM ON. CALL IGHT & URINAL WITHIN REACH. WILL CONTINUE TO MONITOR.
[2019-07-06 20:41] VITALS: BP 97/69
--- NOTE | 2019-07-07 01:11 | NUR ---
I have reviewed this patient and I concur with the Shift Assessment completed by the Licensed Practical Nurse today this shift.
--- NOTE | 2019-07-07 03:03 | NUR ---
PATIENT EYES CLOSED. RESPIRATIONS 18 & EVEN. BED LOW. ALARM ON. CALL LIGHT & URINAL WITHIN REACH. URINAL EMPTIED OF 400CC YELLOW COLOR URINE. WILL CONTINUE TO MONITOR.
[2019-07-07 15:02] VITALS: BP 128/88
--- NOTE | 2019-07-07 18:02 | NUR ---
PT RESTING IN BED, DENIES NEEDS, FAMILY AT BEDSIDE. WCTM.
--- NOTE | 2019-07-07 19:31 | NUR ---
PATIENT RECEIVED LAYING IN BED. PATIENT HAD 200 CC OF URINE IN URINAL. ASSESSMENT & VITAL SIGNS DONE. NO C/O PAIN OR DISTRESS. BED LOW. ALARM ON. CALL LIGHT WITHIN REACH. WILL CONTINUE TO MONITOR.
[2019-07-07 20:00] VITALS: BP 113/72
[2019-07-08 00:07] VITALS: BP 113/72
--- NOTE | 2019-07-08 03:42 | NUR ---
PATIENT EYES CLOSED. RESPIRATIONS 18 & EVEN. BED LOW. ALARM ON. URINAL & CALL LIGHT WITHIN REACH. WILL CONTINUE TO MONITOR.
--- NOTE | 2019-07-08 07:55 | NUR ---
PT RESTING IN BED WITH EYES OPEN CALL LIGHT IN REACH WILL MONITER
[2019-07-08 08:54] LABS: BASOPHILS 0.6 % (0-2); EOSINOPHILS 2.1 % (0-7); HEMATOCRIT 38.5 % (42.0-54.0); IMMATURE GRANULOCYTES 0.4 % (0-5); LYMPHOCYTES 22.4 % (15-50); MCH 33.3 pg (26.0-34.0); MCHC 33.8 g/dL (31.0-37.0); MCV 98.7 fL (80.0-100.0); MEAN PLATELET VOLUME 8.9 fL (7.4-10.4); MONOCYTES 7.4 % (2-11); NEUTROPHILS 67.1 % (40-80); PLATELET COUNT 279 10x3/uL (130-400); RDW 15.3 % (11.5-14.5); WBC 5.3 10x3/uL (4.8-10.8)
[2019-07-08 09:26] LABS: CALC OSMOLALITY 273 mosm/kg (275-300); CHLORIDE - SERUM 104 mmol/L (98-107); CREATININE - SERUM 0.8 mg/dL (0.6-1.3); GLUCOSE 101 mg/dL (74-106); POTASSIUM - SERUM 3.7 mmol/L (3.5-5.1); SODIUM 135 mmol/L (136-145); UREA NITROGEN 24 mg/dL (7-18); eGFR NON AFRICAN AMERICAN > 90 mL/min (90-120)
[2019-07-08 09:36] VITALS: BP 98/69
--- NOTE | 2019-07-08 12:00 | NUR ---
I have reviewed this patient and I concur with the Shift Assessment completed by the Licensed Practical Nurse today this shift.
--- NOTE | 2019-07-08 16:25 | NUR ---
CARE TEAM MEETING: PATIENT IS PROGRESSING SLOWLY IN THERAPY. HIS TENATIVE DISCHARGE DATE IS 07/13/2019. A REFERRAL HAS BEEN FAXED TO [facility] WILL CONTINUE TO FOLLOW WITH PATIENT.
--- NOTE | 2019-07-08 17:07 | NUR ---
PT RESTING IN BED WITH EYES OPEN CALL LIGHT IN REACH WILL MONITER
--- NOTE | 2019-07-08 18:45 | NUR ---
BEDSIDE REPORT COMPLETE. PT LYING IN BED ON RIGHT SIDE AWAKE AND ALERT. DENIES ANY NEEDS OR PAIN. NO SIGNS OF ACUTE DISTRESS NOTED. CL IN REACH. FALL PRECAUTIONS IN PLACE. WILL CONTINUE TO MONITOR
[2019-07-08 21:20] VITALS: BP 96/59
--- NOTE | 2019-07-09 01:20 | NUR ---
PT LYING IN BED EYES CLOSED RESTING. RR EVEN AND UNLABORED. CL IN REACH
--- NOTE | 2019-07-09 04:30 | NUR ---
PT LYING IN BED EYES CLOSED RESTING. RR EVEN AND UNLABORED. CL IN REACH
--- NOTE | 2019-07-09 07:15 | NUR ---
POSITIONED ON BACK WITH EYES CLOSED. RESP EVEN AND UNLABORED WITH NO APPARENT PROBLEMS. BED IN LOW POSITION, SIDERAILS UP X 2 AND CALL LIGHT IN REACH. WILL CONTINUE POC.
[2019-07-09 09:21] VITALS: BP 116/81
--- NOTE | 2019-07-09 19:03 | NUR ---
GREETED PATIENT AND INTRODUCED MYSELF HIS NURSE. PATIENT IS LAYING IN BED RESTING QUIETLY AT THIS TIME. RESPIRATIONS EVEN. NO S/S OF DISTRESS. DENIES ANY NEEDS AT THIS TIME. CALL LIGHT IN REACH.
[2019-07-09 22:57] VITALS: BP 135/75
--- NOTE | 2019-07-10 00:32 | NUR ---
PT LAYING IN BED AWAKE. DENIES ANY NEEDS AT THIS TIME. CALL LIGHT IN REACH.
--- NOTE | 2019-07-10 03:37 | NUR ---
PT. RESTING QUIETLY WITH EYES CLOSED. RESPIRATIONS EVEN. NO S/S OF DISTRESS. CALL LIGHT IN REACH.
[2019-07-10 07:46] LABS: BASOPHILS 0.5 % (0-2); EOSINOPHILS 2.3 % (0-7); HEMATOCRIT 38.6 % (42.0-54.0); HEMOGLOBIN 12.8 g/dL (13.5-17.5); IMMATURE GRANULOCYTES 0.5 % (0-5); LYMPHOCYTES 19.5 % (15-50); MCH 33.4 pg (26.0-34.0); MCHC 33.2 g/dL (31.0-37.0); MEAN PLATELET VOLUME 9.7 fL (7.4-10.4); MONOCYTES 10.2 % (2-11); PLATELET COUNT 242 10x3/uL (130-400); RBC 3.83 10x6/uL (4.20-6.10); RDW 15.8 % (11.5-14.5); WBC 5.6 10x3/uL (4.8-10.8)
[2019-07-10 07:48] LABS: MCV 100.8 fL (80.0-100.0)
--- NOTE | 2019-07-10 08:00 | NUR ---
PATIENT SITTING UP IN BED TO EAT BREAKFAST. VERY HARD OF HEARING. FORGETFULL AT TIMES. BED ALARM ON. CALL LIGHT WITHIN REACH. VOICES NO NEEDS AT THIS TIME. WILL CONTINUE WITH PLAN OF CARE
[2019-07-10 08:09] LABS: CALC OSMOLALITY 277 mosm/kg (275-300); CARBON DIOXIDE 21.4 mmol/L (21.0-32.0); CHLORIDE - SERUM 105 mmol/L (98-107); CREATININE - SERUM 0.9 mg/dL (0.6-1.3); GLUCOSE 90 mg/dL (74-106); SODIUM 137 mmol/L (136-145); UREA NITROGEN 24 mg/dL (7-18); eGFR NON AFRICAN AMERICAN 85 mL/min (90-120)
[2019-07-10 08:10] LABS: POTASSIUM - SERUM 4.5 mmol/L (3.5-5.1)
[2019-07-10 09:52] VITALS: BP 125/79
--- NOTE | 2019-07-10 10:00 | NUR ---
PATIENT REQUEST PRN TYLENOL FOR BILATERAL KNEE PAIN. GIVEN
--- NOTE | 2019-07-10 18:09 | NUR ---
PATIENT IS A TOTAL ASST WITH CARE. INCONT OF BOWEL AND BLADDER
--- NOTE | 2019-07-10 18:40 | NUR ---
BEDSIDE REPORT COMPLETE. PT LYING IN BED WATCHING TV. ALERT AND ORIENTED X4. DENIES ANY NEEDS OR PAIN. RR EVEN AND UNLABORED. CL IN REACH. FALL PRECAUTIONS IN PLACE. WILL CONTINUE TO MONITOR
--- NOTE | 2019-07-10 22:20 | NUR ---
PT LYING IN BED, NOTED PT WET CHANGED AND CLEANED PT, PULLED UP AND STRAIGHTENED IN BED, MEDS CRUSHED AND GIVEN, NO OTHER NEEDS NOTED
--- NOTE | 2019-07-11 02:05 | NUR ---
PT LYING IN BED EYES CLOSED RESTING. NO SIGNS OF ACUTE DISTRESS NOTED. CL IN REACH
[2019-07-11 02:18] VITALS: BP 108/75
--- NOTE | 2019-07-11 04:44 | NUR ---
PT IN BED SLEEPING, FALL PRECAUTIONS IN PLACE. NO NEEDS NOTED AT THIS TIME.
--- NOTE | 2019-07-11 07:30 | NUR ---
POSITIONED ON BACK WITH EYES CLOSED, RESP EVEN AND UNLABORED. SIDERAILS UP X 2, BED IN LOW, LOCKED POSITION AND CALL LIGHT IN REACH. WILL CONTINUE POC.
[2019-07-11 08:10] VITALS: BP 96/64
--- NOTE | 2019-07-11 10:44 | NUR ---
REQUESTED TO BE PUT IN W/C. STATES HE WANTS TO SIT UP A COUPLE OF HOURS. STATES BACK PAIN IS A LITTLE BETTER AT THIS TIME.
--- NOTE | 2019-07-11 11:00 | NUR ---
I have reviewed this patient and I concur with the Shift Assessment completed by the Licensed Practical Nurse today this shift.
--- NOTE | 2019-07-11 13:00 | NUR ---
TOTAL ASST BACK TO BED WITH SOME DIFFICULTY BUT SEEMED TO TOLERATE WELL. NO REQUESTS WHEN BACK IN BED AND RESTING QUIETLY. FAMILY MEMBERS IN TO VISIT.
--- NOTE | 2019-07-11 19:00 | NUR ---
GREETED PATIENT AND INTRODUCED MYSELF HIS NURSE. PATIENT IS LAYING IN BED RESTING QUIETLY AT THIS TIME. RESPIRATIONS EVEN. NO S/S OF DISTRESS. CALL LIGHT IN REACH. DENIES ANY NEEDS AT THIS TIME.
[2019-07-11 20:13] VITALS: BP 116/76
--- NOTE | 2019-07-12 03:27 | NUR ---
PT. RESTING QUIETLY WITH EYES CLOSED. RESPIRATIONS EVEN. NO S/S OF DISTRESS. CALL LIGHT IN REACH.
--- NOTE | 2019-07-12 05:25 | NUR ---
PT CLEANED OF INCONTINENT URINE AND BM. PT REPOSITIONED FOR COMFORT. CALL LIGHT IN REACH.
[2019-07-12 08:00] VITALS: BP 128/79
--- NOTE | 2019-07-12 09:45 | NUR ---
PT AM MEDS AMINISTERED CRUSHED IN APPLESAUCE. PT DENIES NEEDS. WCTM.
--- NOTE | 2019-07-12 18:17 | NUR ---
PT RESTING IN BED, DENIES NEEDS. WCTM.
[2019-07-12 19:41] VITALS: BP 96/62
--- NOTE | 2019-07-13 00:03 | NUR ---
PT AWAKE LAYING IN BED WATCHING TV. CONFUSED TO SURROUNDINGS AT THIS TIME. ATTEMPTED TO REORIENT PT TO SURROUNDINGS AND STAFF. WCTM. CALL LIGHT IN REACH.
--- NOTE | 2019-07-13 03:41 | NUR ---
PT RESTING QUIETLY WITH EYES CLOSED. RESPIRATIONS EVEN. NO S/S OF DISTRESS. CALL LIGHT IN REACH.
--- NOTE | 2019-07-13 03:50 | NUR ---
PT CLEANED OF INCONTINENT URINE. COMPLETE LINEN CHANGE. PT REPOSITIONED FOR COMFORT. CALL LIGHT IN REACH.
[2019-07-13 06:50] LABS: BASOPHILS 0.7 % (0-2); EOSINOPHILS 3.1 % (0-7); HEMATOCRIT 41.1 % (42.0-54.0); HEMOGLOBIN 13.8 g/dL (13.5-17.5); IMMATURE GRANULOCYTES 0.5 % (0-5); LYMPHOCYTES 21.8 % (15-50); MCHC 33.6 g/dL (31.0-37.0); MCV 101.2 fL (80.0-100.0); MEAN PLATELET VOLUME 9.5 fL (7.4-10.4); MONOCYTES 10.6 % (2-11); NEUTROPHILS 63.3 % (40-80); PLATELET COUNT 227 10x3/uL (130-400); RBC 4.06 10x6/uL (4.20-6.10); WBC 5.5 10x3/uL (4.8-10.8)
[2019-07-13 08:00] VITALS: BP 122/73
--- NOTE | 2019-07-13 08:15 | NUR ---
PT RESTING IN BED WITH EYES OPEN CALL LIGHT IN REACH WILL MONITER.
[2019-07-13] MEDS ORDERED: GABAPENTIN100 MG PO (08:23)
[2019-07-13 08:35] LABS: CALC OSMOLALITY 273 mosm/kg (275-300); CALCIUM 9.9 mg/dL (8.5-10.1); CARBON DIOXIDE 19.4 mmol/L (21.0-32.0); CHLORIDE - SERUM 104 mmol/L (98-107); GLUCOSE 96 mg/dL (74-106); POTASSIUM - SERUM 4.1 mmol/L (3.5-5.1); SODIUM 136 mmol/L (136-145); UREA NITROGEN 19 mg/dL (7-18); eGFR NON AFRICAN AMERICAN 76 mL/min (90-120)
--- NOTE | 2019-07-13 11:45 | NUR ---
PT DISCHARGED TO [facility] VIA WHEELCHAIR WITH FACILITY DRAPERY SUPERVISOR DISCHARGE SUMMARY AND DISCHARGE MEDS SENT WITH PT. REPORT CALLED NO PROBEMS TOLERATED WELL
== END 2019-07-13 15:11 | DRG 70 ==
LOC: D.REHAB 12:31
PROVIDERS: ADMIT Emergency Medicine; ATTEND Emergency Medicine
DX: G93.41 Metabolic encephalopathy (principal); E43 Unspecified severe protein-calorie malnutrition; R17 Unspecified jaundice; N39.0 Urinary tract infection, site not specified; R11.2 Nausea with vomiting, unspecified; R53.83 Other fatigue; R53.1 Weakness; R13.12 Dysphagia, oropharyngeal phase; K31.84 Gastroparesis; D69.6 Thrombocytopenia, unspecified; I10 Essential (primary) hypertension; K59.00 Constipation, unspecified; R29.810 Facial weakness; R74.8 Abnormal levels of other serum enzymes; D50.9 Iron deficiency anemia, unspecified; E86.0 Dehydration; R79.89 Other specified abnormal findings of blood chemistry; E83.42 Hypomagnesemia